=== PATIENT | male | born 1960 | race Caucasian/White ===

== ENCOUNTER 2025-05-09 19:09 | Emergency (ER) | payer MEDICARE ==
--- NOTE | 2025-05-09 19:42 | ED ---
Male Urogenital HPI - General Chief complaint: Urogenital Stated complaint: Abd pain Time Seen by Provider: 05/09/25 19:35 Source: patient Mode of arrival: ambulatory - Related Data Allergies Allergy/AdvReac Type Severity Reaction Status Date / Time Fish Containing Products Allergy Abdominal Verified 05/09/25 19:33 [Fish] Pain Review of Systems ROS Statement: Those systems with pertinent positive or pertinent negative responses have been documented in the HPI. ROS Other: All systems not noted in ROS Statement are negative. Past Medical History Past Medical History: No Reported History History of Any Multi-Drug Resistant Organisms: None Reported Past Surgical History: Bladder Surgery Past Psychological History: No Psychological Hx Reported Smoking Status: Never smoker Past Alcohol Use History: None Reported Past Drug Use History: None Reported Course Vital Signs 05/09/25 19:29 Temperature 99.3 F Pulse Rate 112 H Respiratory 20 Rate Blood Pressure 207/100 O2 Sat by Pulse 97 Oximetry Medical Decision Making - Lab Data Result diagrams: 05/09/25 19:49 05/09/25 19:49 Lab Results 05/09/25 05/09/25 05/09/25 Range/Units 19:49 19:49 20:10 WBC 16.40 H (4.50-10.00) 10*3/uL RBC 5.34 (4.40-5.60) 10*6/uL Hgb 16.2 (13.0-17.0) g/dL Hct 45.1 (39.6-50.0) % MCV 84.5 (80.0-97.0) fL MCH 30.3 (27.0-32.0) pg MCHC 35.9 (32.0-37.0) g/dL Plt Count 213 (140-440) 10*3/uL MPV 9.7 (9.5-12.2) fL Immature Gran % (Auto) 0.7 % Neutrophils % 90.3 % Lymphocytes % 4.7 % Monocytes % 4.1 % Eosinophils % 0.0 % Basophils % 0.2 % Immature Gran # 0.11 H (0.00-0.04) 10*3/uL Neutrophils # 14.81 H (1.80-7.70) 10*3/uL Lymphocytes # 0.77 L (0.90-5.00) 10*3/uL Monocytes # 0.67 (0.20-1.00) 10*3/uL Eosinophils # 0.00 L (0.04-0.35) 10*3/uL Basophils # 0.04 (0.00-0.10) 10*3/uL Sodium 136 L (137-145) mmol/L Potassium 4.0 (3.5-5.1) mmol/L Chloride 103 (98-107) mmol/L Carbon Dioxide 21 L (22-30) mmol/L Anion Gap 12 mmol/L BUN 14 (9-20) mg/dL Creatinine 1.11 (0.66-1.25) mg/dL Est GFR (CKD-EPI)AfAm 79 (>60 ml/min/1.73 sqM) Est GFR (CKD-EPI)NonAf 69 (>60 ml/min/1.73 sqM) Glucose 127 H (74-99) mg/dL Calcium 9.8 (8.4-10.2) mg/dL Total Bilirubin 0.7 (0.2-1.3) mg/dL AST 31 (17-59) U/L ALT 36 (4-49) U/L Alkaline Phosphatase 63 (38-126) U/L Total Protein 7.5 (6.3-8.2) g/dL Albumin 4.8 (3.5-5.0) g/dL Amylase 59 (30-110) U/L Lipase 67 (23-300) U/L Urine Color Colorless Urine Appearance Clear (Clear) Urine pH 5.0 (5.0-8.0) Ur Specific [place] 1.011 (1.001-1.035) Urine Protein Negative (Negative) Urine Glucose (UA) Negative (Negative) Urine Ketones Negative (Negative) Urine Blood Trace H (Negative) Urine Nitrite Negative (Negative) Urine Bilirubin Negative (Negative) Urine Urobilinogen <2.0 (<2.0) mg/dL Ur Leukocyte Esterase Negative (Negative) Urine RBC 7 H (0-5) /hpf Urine WBC 1 (0-5) /hpf Ur Squamous Epith Cells <1 (0-4) /hpf Urine Mucus Rare H (None) /hpf Disposition Clinical Impression: Urinary retention Disposition: HOME SELF-CARE Condition: Good Instructions (If sedation given, give patient instructions): Urinary Retention in Men (ED), Enlarged Prostate (BPH) (ED) Referrals: Warren Squires DO [Primary Care Provider] - 1-2 days Andrew Perrin MD [STAFF PHYSICIAN] - 1-2 days Time of Disposition: 21:00
[2025-05-09] MEDS: SODIUM CHLORIDE 0.9% 1,000 ML IV ONE (19:56)
[2025-05-09] MEDS: ONDANSETRON 4 MG/2 ML VIAL IVP STA (19:57)
[2025-05-09] MEDS: HYDROmorphone 0.5 MG/0.5 ML SYRINGE IVP STA (19:57)
[2025-05-09] MEDS: LORazepam 1 MG/0.5 ML VIAL IV STA (19:57)
[2025-05-09 20:09] LABS: Basophils # (A) 0.04 10*3/uL (0.00-0.10); Basophils % (A) 0.2 %; Eosinophils # (A) 0.00 10*3/uL (0.04-0.35); Eosinophils % (A) 0.0 %; HCT 45.1 % (39.6-50.0); HGB 16.2 g/dL (13.0-17.0); Lymphocytes # (A) 0.77 10*3/uL (0.90-5.00); Lymphocytes % (A) 4.7 %; MCH 30.3 pg (27.0-32.0); MCHC 35.9 g/dL (32.0-37.0); MCV 84.5 fL (80.0-97.0); Monocytes # (A) 0.67 10*3/uL (0.20-1.00); Monocytes % (A) 4.1 %; Neutrophils # (A) 14.81 10*3/uL (1.80-7.70); Neutrophils % (A) 90.3 %; Platelet Count 213 10*3/uL (140-440); RBC 5.34 10*6/uL (4.40-5.60); RDW 12.1 % (11.5-14.5); WBC 16.40 10*3/uL (4.50-10.00)
[2025-05-09 20:22] LABS: ALT 36 U/L (4-49); AST 31 U/L (17-59); African American GFR (CKD) 79 (>60 ml/min/1.73 sqM); Albumin 4.8 g/dL (3.5-5.0); Alkaline Phosphatase 63 U/L (38-126); Amylase 59 U/L (30-110); Anion Gap 12 mmol/L; Blood Urea Nitrogen 14 mg/dL (9-20); Calcium 9.8 mg/dL (8.4-10.2); Carbon Dioxide 21 mmol/L (22-30); Chloride 103 mmol/L (98-107); Glucose 127 mg/dL (74-99); Lipase 67 U/L (23-300); Non-African American GFR(CKD) 69 (>60 ml/min/1.73 sqM); Potassium 4.0 mmol/L (3.5-5.1); Sodium 136 mmol/L (137-145); Total Protein 7.5 g/dL (6.3-8.2)
--- NOTE | 2025-05-09 20:53 | CT ---
EXAMINATION TYPE: CT abdomen pelvis wo con DATE OF EXAM: 05/09/2025 8:44 PM COMPARISON: None. CLINICAL INDICATION: Male, 65 years old with history of abdominal pain; PASSING OF BLADDER STONES, IN ABILITY TO STOP URINATING TECHNIQUE: Axial CT abdomen pelvis wo con;Sagittal and coronal reformats were created on a separate workstation. Oral contrast used: without Oral Contrast (none if empty) CT DLP: 1036.2 mGycm, Automated exposure control for dose reduction was used. FINDINGS: LOWER CHEST: Unremarkable ABDOMEN LIVER: Unremarkable GALLBLADDER AND BILE DUCTS: Unremarkable. PANCREAS: Unremarkable. SPLEEN: Unremarkable. ADRENAL GLANDS: Unremarkable. KIDNEYS AND URETERS: Bilateral mild hydroureteronephrosis without discrete evidence of an obstructing stone. There is nonspecific free fluid in the lower abdomen surrounding the regions of the mid/dista l ureters. PELVIS BLADDER: Nondistended with Cardona catheter in place. REPRODUCTIVE: Marked prostatomegaly measuring up to 7.2 cm in transverse dimension. ABDOMEN & PELVIS STOMACH AND BOWEL: Stomach and duodenum are unremarkable. No evidence of bowel obstruction. PERITONEUM/RETROPERITONEUM: No evidence of pneumoperitoneum or free fluid. VASCULATURE: No evidence of aortic aneurysm. MUSCULOSKELETAL: No acute osseous abnormalities LYMPH NODES: No gross evidence for lymphadenopathy. SOFT TISSUE/ABDOMINAL WALL: Small fat-containing bilateral in hernias. IMPRESSION: 1. Bilateral mild hydronephrosis without discrete evidence of an obstructing stone or other lesion. Findings may reflect sequelae of recently passed stones or bladder outlet obstruction. Recommend clin ical correlation. Cardona catheter in place with decompressed urinary bladder. 2. Marked prostatomegaly. [facility], , 05/09/2025 8:51 PM
[2025-05-09 20:56] LABS: Bilirubin,Urine Negative (Negative); Blood,Urine Trace (Negative); Color,Urine Colorless; Glucose,Urine (UA) Negative (Negative); Ketones,Urine Negative (Negative); Leukocyte Esterase,Urine Negative (Negative); Mucus,Urine Rare /hpf; Nitrite,Urine Negative (Negative); PH, Urine 5.0 (5.0-8.0); Protein,Urine Negative (Negative); RBC,Urine 7 /hpf (0-5); Specific Gravity,Urine 1.011 (1.001-1.035); Squamous Epithelial Cell,Urine <1 /hpf (0-4); Urobilinogen,Urine <2.0 mg/dL (<2.0); WBC,Urine 1 /hpf (0-5)
[2025-05-09 21:51] VITALS: BP 145/80; PULSE 96; RESP 18; TEMP 98.4
== END 2025-05-09 21:51 | disposition home or self-care (01) ==
LOC: EC 19:09
DX: N21.0 Calculus in bladder (principal); Z91.013 Allergy to seafood
CPT/HCPCS: 36415; 80053; 82150; 83690; 85025; 81001; 74176; 99284; 96374; 96375; 96361; J2060; J2405; J1171